=== PATIENT | female | born 1990 | race Two or more races ===

== ENCOUNTER 2021-01-29 20:09 | Emergency (ER) | payer MEDICAID, OTHER ==
[~2021-01-29] VITALS: Ht 170.2 cm; Wt 77.1 kg
[2021-01-29 20:11] VITALS: BP 152/91
== END 2021-01-30 01:42 | disposition left against medical advice (07) ==
LOC: ER 20:12
DX: M25.531 Pain in right wrist (principal); R51.9 Headache, unspecified; M25.571 Pain in right ankle and joints of right foot; Z53.21 Procedure and treatment not carried out due to patient leaving prior to being seen by health care provider; V89.2XXA Person injured in unspecified motor-vehicle accident, traffic, initial encounter; Y93.89 Activity, other specified; Y92.89 Other specified places as the place of occurrence of the external cause; Y99.8 Other external cause status